=== PATIENT | male | born 1960 | race Caucasian/White ===

== ENCOUNTER → 2016-10-27 | Outpatient (CLI) | payer MEDICARE, SELFPAY ==
[~2016-10-27] MED LIST: BUSPIRONE HCL15 MG PO; CATAPRES 0.1MG0.1 MG PO; CLONAZEPAM1 MG PO; CYMBALTA PO; FELODIPINE ER10 MG PO; FLEXERIL 10 MG10 MG PO; HUMALOG 10100 UNITS/ SQ; LANTUS100 UNIT/1 SQ; LOVASTATIN20 MG PO; LOVENOX SY40 MG/0.4 SQ; MELOXICAM15 MG PO; METOCLOPRAM5 MG/5 M1 PO; NEURONTIN 300300 MG PO; NEURONTIN300 MG PO; PERCOCET 10-321 EACH PO; PERCOCET 5-3251 EACH PO; PHENERGAN 25 MG25 M1 PO; PHENOBARBI20 MG/5 ML PO; TENORMIN 50 MG50 MG PO
[2016-10-27 11:00] LABS: RED BLOOD COUNT 4.35 M/UL (4.20-5.50); WHITE BLOOD COUNT 6.2 K/UL (4.5-11.0)
[2016-10-27 11:15] LABS: BUN/CREATININE RATIO 21 (0-10)
== END ==
LOC: OPSV2 09:41
PROVIDERS: Orthopaedic Surgery
DX: Z01.812 Encounter for preprocedural laboratory examination (principal); M19.011 Primary osteoarthritis, right shoulder; E11.9 Type 2 diabetes mellitus without complications; I10 Essential (primary) hypertension
CPT/HCPCS: 36415; 80048; 81001; 83036; 85027; 87081; 93005

== ENCOUNTER → 2016-11-17 | Outpatient (CLI) | payer MEDICARE ==
[2016-11-17 11:21] LABS: HEMOGLOBIN 15.4 gm/dl (14.0-17.5); RED BLOOD COUNT 4.72 M/UL (4.20-5.50); WHITE BLOOD COUNT 7.2 K/UL (4.5-11.0)
[2016-11-17 11:39] LABS: BUN/CREATININE RATIO 18 (0-10)
== END ==
LOC: OPSV2 10:32
PROVIDERS: Orthopaedic Surgery
DX: Z01.812 Encounter for preprocedural laboratory examination (principal); Z01.810 Encounter for preprocedural cardiovascular examination; S82.832A Other fracture of upper and lower end of left fibula, initial encounter for closed fracture; I10 Essential (primary) hypertension; Z95.1 Presence of aortocoronary bypass graft; Z88.8 Allergy status to other drugs, medicaments and biological substances
CPT/HCPCS: 36415; 80048; 81001; 85025

== ENCOUNTER 2016-11-24 05:33 | Observation (INO) | payer MEDICARE, SELFPAY ==
[~2016-11-24] VITALS: Ht 177.8 cm; Wt 80.3 kg
[~2016-11-24 05:33] MED LIST changes: -HUMALOG 10100 UNITS/ SQ; -LANTUS100 UNIT/1 SQ; -LOVENOX SY40 MG/0.4 SQ; -PERCOCET 10-321 EACH PO; -PERCOCET 5-3251 EACH PO
[2016-11-25 05:56] LABS: HEMOGLOBIN 11.2 gm/dl (14.0-17.5); RED BLOOD COUNT 3.58 M/UL (4.20-5.50)
[2016-11-25 06:16] LABS: BUN/CREATININE RATIO 19 (0-10)
[2016-11-25] MEDS ORDERED: LOVENOX SY40 MG/0.4 SQ (15:25)
[2016-11-25] MEDS ORDERED: PERCOCET 5-3251 EACH PO (15:26)
[2017-03-04] MEDS ORDERED: LANTUS100 UNIT/1 SQ (11:10)
[2017-03-04] MEDS ORDERED: HUMALOG 10100 UNITS/ SQ (11:13)
[2017-03-04] MEDS ORDERED: PERCOCET 10-321 EACH PO (15:32)
== END 2016-11-25 16:37 | disposition home or self-care (01) ==
LOC: ZOBSOF 05:33 → M/S 05:33
PROVIDERS: ADMIT Orthopaedic Surgery
PROC: 0RPJ0JZ Removal of Synthetic Substitute from Right Shoulder Joint, Open Approach (ICD-10-PCS; principal; 2016-11-24 08:15)
DX: T84.098A Other mechanical complication of other internal joint prosthesis, initial encounter (principal); M19.011 Primary osteoarthritis, right shoulder; I10 Essential (primary) hypertension; E78.5 Hyperlipidemia, unspecified; E11.9 Type 2 diabetes mellitus without complications; G40.909 Epilepsy, unspecified, not intractable, without status epilepticus; F41.9 Anxiety disorder, unspecified; F17.210 Nicotine dependence, cigarettes, uncomplicated; Z90.49 Acquired absence of other specified parts of digestive tract; Z79.891 Long term (current) use of opiate analgesic; Z79.4 Long term (current) use of insulin; Z79.899 Other long term (current) drug therapy; Y83.1 Surgical operation with implant of artificial internal device as the cause of abnormal reaction of the patient, or of later complication, without mention of misadventure at the time of the procedure
CPT/HCPCS: 36415; 73020; 73030; 73560; 80048; 80051; 82565; 82962; 84520; 85027; 86850; 86900; 86901; 96372; 96374; 96375; 96376; 97116; 97530; 97535; C1776; G0378; G0379; J0171; J0690; J1100; J1650; J1815; J2250; J2270; J2370; J2405; J2795; J3010; J7030; J7120

== ENCOUNTER 2022-02-03 20:48 | Inpatient (IN) | payer MEDICARE, MEDICAID ==
[~2022-02-03] VITALS: Ht 175.3 cm; Wt 71.0 kg
[~2022-02-03 20:48] MED LIST changes: +ATENOLOL-CHLOR1 EAC1 PO; +BUPRENORPHIN-N1 EACH SL; +DICYCLOMINE HCL10 MG PO; +ELIQUIS2.5 MG PO; +HUMALOG 10100 UNITS/ SC; +HUMALOG 10100 UNITS/ SQ; +LANTUS INS100 UTS/M1 SQ; +LANTUS100 UNIT/1 SQ; +LODINE CAP 300300 MG PO; +LOVENOX SY40 MG/0.4 SQ; +NEURONTIN600 MG PO; +PERCOCET 10-321 EACH PO; +PERCOCET 5-3251 EACH PO; +PERCOCET 5/325 T1 EA PO; -PHENOBARBI20 MG/5 ML PO; +PROZAC 20 MG CA20 MG PO; -TENORMIN 50 MG50 MG PO; +VITAMIN B-6100 MG PO; +[UNRECOGNIZED DRUG - OTHER] PO
[2022-02-03 22:06] LABS: HEMOGLOBIN 16.4 gm/dl (14.0-17.5); RED BLOOD COUNT 5.02 M/UL (4.20-5.50); WHITE BLOOD COUNT 7.8 K/UL (4.5-11.0)
[2022-02-03 22:27] LABS: BUN/CREATININE RATIO 28 (0-10)
[2022-02-04 05:16] LABS: HEMOGLOBIN 14.4 gm/dl (14.0-17.5); RED BLOOD COUNT 4.47 M/UL (4.20-5.50); WHITE BLOOD COUNT 16.8 K/UL (4.5-11.0)
[2022-02-04 09:42] LABS: BUN/CREATININE RATIO 35 (0-10)
[2022-02-04] MEDS ORDERED: OXCARBAZEPINE600 MG PO (13:52)
[2022-02-04] MEDS ORDERED: PROZAC40 MG PO (13:56)
[2022-02-04] MEDS ORDERED: VITAMIN B-6100 MG PO (13:57)
[2022-02-04] MEDS ORDERED: VITAMIN D21250 MCG PO (13:59)
[2022-02-04] MEDS ORDERED: MELOXICAM15 MG PO (14:02)
[2022-02-04] MEDS ORDERED: LISINOPRIL20 MG PO (14:02)
[2022-02-04] MEDS ORDERED: NOVOLOG FL100 UNIT/1 INJ (14:04)
[2022-02-04] MEDS ORDERED: ASPIRIN EC81 MG PO (14:06)
[2022-02-04] MEDS ORDERED: HYDROXYZINE PAM25 MG PO (14:07)
[2022-02-04] MEDS ORDERED: BUSPIRONE HCL30 MG PO (14:08)
--- NOTE | 2022-02-04 15:14 | NUR ---
GAVE REPORT TO JONATHAN ON PCU WHO ACCEPTED THE PT.
[2022-02-04 15:30] LABS: BUN/CREATININE RATIO 40 (0-10)
[2022-02-04 17:27] LABS: BUN/CREATININE RATIO 36 (0-10)
[2022-02-04 21:48] LABS: BUN/CREATININE RATIO 36 (0-10)
[2022-02-05 02:18] LABS: HEMOGLOBIN 12.7 gm/dl (14.0-17.5); WHITE BLOOD COUNT 16.3 K/UL (4.5-11.0)
[2022-02-05 02:24] LABS: RED BLOOD COUNT 3.97 M/UL (4.20-5.50)
[2022-02-05 02:46] LABS: BUN/CREATININE RATIO 38 (0-10)
[2022-02-05 06:25] LABS: BUN/CREATININE RATIO 48 (0-10)
[2022-02-05 10:54] LABS: BUN/CREATININE RATIO 59 (0-10)
[2022-02-05 17:08] LABS: BUN/CREATININE RATIO 57 (0-10)
[2022-02-05 19:50] LABS: BUN/CREATININE RATIO 50 (0-10)
[2022-02-06 05:16] LABS: WHITE BLOOD COUNT 14.8 K/UL (4.5-11.0)
[2022-02-06 05:17] LABS: HEMOGLOBIN 8.7 gm/dl (14.0-17.5); RED BLOOD COUNT 2.69 M/UL (4.20-5.50)
[2022-02-06 05:36] LABS: BUN/CREATININE RATIO 57 (0-10)
[2022-02-06 17:23] LABS: BUN/CREATININE RATIO 51 (0-10)
[2022-02-07 03:17] LABS: BUN/CREATININE RATIO 52 (0-10)
[2022-02-07 03:37] LABS: HEMOGLOBIN 8.2 gm/dl (14.0-17.5); RED BLOOD COUNT 2.57 M/UL (4.20-5.50)
[2022-02-07 03:45] LABS: WHITE BLOOD COUNT 10.6 K/UL (4.5-11.0)
[2022-02-08 02:37] LABS: HEMOGLOBIN 7.7 gm/dl (14.0-17.5); RED BLOOD COUNT 2.35 M/UL (4.20-5.50)
[2022-02-08 04:46] LABS: BUN/CREATININE RATIO 32 (0-10)
--- NOTE | 2022-02-08 17:51 | NUR ---
Patient recieved at approximately 1730. Patient stable and given call light. Bed in lowest position, vitals are stable. Seizure precautions in place. No complaints at this time.
[2022-02-09 06:13] LABS: RED BLOOD COUNT 2.74 M/UL (4.20-5.50); WHITE BLOOD COUNT 12.6 K/UL (4.5-11.0)
[2022-02-09 06:33] LABS: BUN/CREATININE RATIO 34 (0-10)
[2022-02-10 08:16] LABS: HEMOGLOBIN 8.1 gm/dl (14.0-17.5); RED BLOOD COUNT 2.41 M/UL (4.20-5.50); WHITE BLOOD COUNT 12.7 K/UL (4.5-11.0)
[2022-02-10 08:40] LABS: BUN/CREATININE RATIO 36 (0-10)
[2022-02-11 03:03] LABS: WHITE BLOOD COUNT 11.1 K/UL (4.5-11.0)
[2022-02-11 03:18] LABS: BUN/CREATININE RATIO 29 (0-10)
[2022-02-11 03:27] LABS: RED BLOOD COUNT 1.97 M/UL (4.20-5.50)
[2022-02-11 03:30] LABS: HEMOGLOBIN 6.4 gm/dl (14.0-17.5)
[2022-02-11 12:03] LABS: HEMOGLOBIN 8.1 gm/dl (14.0-17.5)
[2022-02-12 07:15] LABS: BUN/CREATININE RATIO 20 (0-10)
[2022-02-12 07:31] LABS: HEMOGLOBIN 7.6 gm/dl (14.0-17.5)
[2022-02-12 07:33] LABS: RED BLOOD COUNT 2.18 M/UL (4.20-5.50)
[2022-02-12 12:08] LABS: HEMOGLOBIN 8.2 gm/dl (14.0-17.5)
[2022-02-13 05:02] LABS: RED BLOOD COUNT 2.38 M/UL (4.20-5.50)
[2022-02-13 05:05] LABS: WHITE BLOOD COUNT 11.4 K/UL (4.5-11.0)
[2022-02-13 05:28] LABS: BUN/CREATININE RATIO 17 (0-10)
[2022-02-13] MEDS ORDERED: LASIX40 MG PO (11:52)
[2022-02-13] MEDS ORDERED: LANTUS INS100 UTS/M1 SQ (11:52)
[2022-02-13] MEDS ORDERED: FOLIC ACID 1 MG1 MG PO (11:52)
[2022-02-13] MEDS ORDERED: POLYETHYLENE GL17 GM PO (11:52)
[2022-02-13] MEDS ORDERED: BENTYL 10MG CAP10 MG PO (11:52)
[2022-02-13] MEDS ORDERED: NEURONTIN600 MG PO (11:52)
[2022-02-13] MEDS ORDERED: PHENOBARBITAL97.2 MG PO ×3 (11:52→16:50)
[2022-02-13] MEDS ORDERED: PROTONIX 40 MG40 M1 PO (11:52)
[2022-02-13] MEDS ORDERED: METOPROLOL SUCC50 MG PO (11:52)
[2022-02-13] MEDS ORDERED: THERAGRAN M TAB1 EA PO (11:52)
[2022-02-13] MEDS ORDERED: CLONAZEPAM1 MG PO (11:56)
[2022-02-13] MEDS ORDERED: GABAPENTIN300 MG PO ×2 (12:03→16:50)
[2022-02-13] MEDS ORDERED: QUETIAPINE FUMA25 MG PO (12:50)
--- NOTE | 2022-02-13 16:00 | NUR ---
REPORT CALLED TO KASSANDRA AT [facility] AND [facility].
[2022-02-13] MEDS ORDERED: KLONOPIN0.5 MG PO (16:50)
--- NOTE | 2022-02-14 03:14 | NUR ---
PATIENT D/C WITH EMS TO TRANSPORT TO [facility]. IV TOOK OUT AND TOLERATED WELL. PATIENT MCCANN EMPTIED AND 1800 ML OF URINE EMPTIED. LEFT F/C IN PER MD. BLOOD SUGAR CHECKED PRIOR TO D/C AND WAS 133. PT WAS STABLE UPON TRANSPORT.
== END 2022-02-14 03:09 | DRG 637 ==
LOC: ER1 20:48 → MED SURG 4 23:03 → CDU 23:03 → CCU 23:03 → PROG CARE 23:03 → CCU 02-04 02:50 → PROG CARE 02-04 15:00 → MED SURG 4 02-08 17:36 → PROG CARE 02-10 07:02
PROVIDERS: Internal Medicine; Internal Medicine Infectious Disease; Internal Medicine Nephrology; Internal Medicine Pulmonary Disease; Student in an Organized Health Care Education/Training Program; ADMIT Internal Medicine
PROC: 3E03329 Introduction of Other Anti-infective into Peripheral Vein, Percutaneous Approach (ICD-10-PCS; 2022-02-03)
PROC: 4A10X4Z Monitoring of Central Nervous Electrical Activity, External Approach (ICD-10-PCS; 2022-02-04)
PROC: 3E043XZ Introduction of Vasopressor into Central Vein, Percutaneous Approach (ICD-10-PCS; principal; 2022-02-05)
PROC: B24BZZZ Ultrasonography of Heart with Aorta (ICD-10-PCS; 2022-02-10)
PROC: 30233N1 Transfusion of Nonautologous Red Blood Cells into Peripheral Vein, Percutaneous Approach (ICD-10-PCS; 2022-02-11)
PROC: 0DB78ZX Excision of Stomach, Pylorus, Via Natural or Artificial Opening Endoscopic, Diagnostic (ICD-10-PCS; 2022-02-11)
DX: E10.10 Type 1 diabetes mellitus with ketoacidosis without coma (principal); G92.8 Other toxic encephalopathy; R57.8 Other shock; J18.9 Pneumonia, unspecified organism; Z20.822 Contact with and (suspected) exposure to COVID-19; K26.4 Chronic or unspecified duodenal ulcer with hemorrhage; K20.91 Esophagitis, unspecified with bleeding; A41.9 Sepsis, unspecified organism; D62 Acute posthemorrhagic anemia; E87.1 Hypo-osmolality and hyponatremia; N17.9 Acute kidney failure, unspecified; E86.1 Hypovolemia; K59.00 Constipation, unspecified; F41.9 Anxiety disorder, unspecified; T41.45XA Adverse effect of unspecified anesthetic, initial encounter; K31.84 Gastroparesis; G89.29 Other chronic pain; M54.9 Dorsalgia, unspecified; E86.0 Dehydration; E10.43 Type 1 diabetes mellitus with diabetic autonomic (poly)neuropathy; F17.210 Nicotine dependence, cigarettes, uncomplicated; J44.9 Chronic obstructive pulmonary disease, unspecified; G40.909 Epilepsy, unspecified, not intractable, without status epilepticus; F32.A Depression, unspecified; I48.0 Paroxysmal atrial fibrillation; Z79.01 Long term (current) use of anticoagulants; Z90.49 Acquired absence of other specified parts of digestive tract; Z98.890 Other specified postprocedural states; Z79.4 Long term (current) use of insulin; Z83.3 Family history of diabetes mellitus; Z82.49 Family history of ischemic heart disease and other diseases of the circulatory system
CPT/HCPCS: ECHO; 36415; 36600; 70450; 70551; 71045; 74018; 80048; 80053; 80183; 81001; 82009; 82140; 82270; 82550; 82553; 82607; 82728; 82746; 82803; 82962; 83540; 83550; 83605; 83690; 83735; 83880; 83930; 83935; 84100; 84132; 84300; 84443; 84484; 85014; 85018; 85025; 85027; 86140; 86850; 86900; 86901; 87040; 93005; 93306; 95816; 96374; 96375; 97110-GP-CQ; 97116-GP-CQ; 97161; 97164; 97166; 97167; 97530; 97530-GP-CQ; 99285; C9113; G0378; J0456; J0696; J1364; J1650; J1756; J1940; J2405; J2597; J2704; J3475; J7030; J7040; J7042; P9016; Q0177